=== PATIENT | female | born 1995 | race Hispanic/Latino ===

== ENCOUNTER 2018-03-23 21:10 | Emergency (ER) | payer OTHER ==
[2018-03-23 21:23] VITALS: BP 129/90; PULSE 94; RESP 16; TEMP 98.4; O2SAT 100
[2018-03-23] MEDS ORDERED: Naproxen 500 MG TAB PO STA (21:36)
--- NOTE | 2018-03-23 21:56 | ED PDOC ---
Upper Extremity Pain/Injury Time Seen by Provider: 03/23/18 21:25 Chief Complaint (Nursing): Upper Extremity Problem/Injury Chief Complaint (Provider): Upper Extremity Problem/Injury History Per: Patient History/Exam Limitations: no limitations Onset/Duration Of Symptoms: Hrs Current Symptoms Are (Timing): Still Present Pain Scale Rating Of: 6 Additional Complaint(s): Patient is a 23 year old female who reports to emergency department after injuring her left wrist and hand, status post fall x2 while ice skating. Patient states she landed on her outstretched hand both times to brace herself and she now has pain to the palm and wrist which radiates to her elbow. Patient has not taken any medications prior to arrival and states she is right hand dominant. She denies any other injury, including head injury or loss of consciousness. Otherwise: (-) numbness, (-) other injury PMD: [facility] LMP: can not remember because she is on control and it is usually irregular Past Medical History Reviewed: Historical Data, Nursing Documentation, Vital Signs Vital Signs: Last Vital Signs Temp 98.4 F 03/23/18 21:21 Pulse 94 H 03/23/18 21:21 Resp 16 03/23/18 21:21 BP 129/90 03/23/18 21:21 Pulse Ox 100 03/23/18 21:21 - Medical History PMH: Anxiety, GERD - Surgical History Surgical History: No Surg Hx - Family History Family History: States: Unknown Family Hx - Home Medications Home Medications: Ambulatory Orders Medication Instructions Recorded Acetaminophen [Acetaminophen 8 650 mg PO Q8 PRN #21 tablet.er 03/23/18 Hour] RX: Ibuprofen [Motrin Tab] 800 mg PO Q8 PRN #21 tab 03/23/18 RX: traMADol [Ultram] 50 mg PO Q6 PRN #12 tab 03/23/18 - Allergies Allergies/Adverse Reactions: Allergies Allergy/AdvReac Type Severity Reaction Status Date / Time No Known Allergies Allergy Verified 03/23/18 21:23 Review of Systems ROS Statement: Except As Marked, All Systems Reviewed And Found Negative Musculoskeletal: Positive for: Hand Pain (left hand and wrist pain ) Physical Exam - Reviewed Nursing Documentation Reviewed: Yes Vital Signs Reviewed: Yes - Physical Exam Comments: GENERAL APPEARANCE: Patient is awake, alert, oriented x 3, resting comfortably and in no acute distress. SKIN: Warm, dry; (-) cyanosis. NECK: Supple, FROM CHEST AND RESPIRATORY: (-) rales, (-) rhonchi, (-) wheezes; breath sounds equal bilaterally. Respirations even and nonlabored. HEART AND CARDIOVASCULAR: (-) irregularity WRIST/HAND: (+) diffuse tenderness to the left wrist, first metacarpal, scaphoid, and proximal palm with decreased ROM secondary to pain; (+) faint ecchymosis to the proximal palm and palmar, proximal first metacarpal; (+) Sensation and capillary refill intact (-) skin breakage; (-) warmth, (-) erythema (+) snuffbox tenderness of left wrist. Remainder of upper extremity is non tender and has FROM. NEURO AND PSYCH: Mental status as above. Gait: steady. Speech: clear. (-) facial asymmetry - ECG O2 Sat by Pulse Oximetry: 100 (RA) Pulse Ox Interpretation: Normal Medical Decision Making Medical Decision Making: Time: 21:35 Impression: acute hand and wrist pain status post fall, rule out fracture Plan: -- test --naproxen 500 mg PO --Left hand x-ray 3 views --left wrist x-ray 3 views 21:42 test: negative 2229 Wrist XR: (?) scaphoid fracture as read by Ethan HALL Wrist XR: (?) scaphoid fracture as read by Ethan HALL Patient requesting additional pain medication at this time. Tylenol #3 ordered, 1 tablet PO. Patient reports she is not driving home. 2305 Patient placed in thumb spica splint by medical equipment repair technicianpancho Jimenez. NV intact after placement. On re-evaluation, patient reports improvement of symptoms. On exam, patient remains AAOx3, in no acute distress. Vitals stable. Lab/Diagnostic results d/w the patient in great detail. Diagnosis of possible scaphoid fracture, acute wrist/hand pain s/p fall on ice skates d/w the patient. Based on history, exam and diagnostic results, plan will be for outpatient follow up with ortho. Patient instructed to follow-up with pmd / referral provided / the clinic in 1- 2 days without fail. Advised to take medication as prescribed. Return to the emergency room at any time for any new or worsening symptoms. Patient states she fully agrees with and understands discharge instructions. States that she agrees with the plan and disposition. Verbalized and repeated discharge instructions and plan. I have given the patient opportunity to ask any additional questions. Scribe Attestation: Documented by Dennis Brown, acting as a scribe for Shikha Fernandez Provider Scribe Attestation: All medical record entries made by the Scribe were at my direction and personally dictated by me. I have reviewed the chart and agree that the record accurately reflects my personal performance of the history, physical exam, medical decision making, and the department course for this patient. I have also personally directed, reviewed, and agree with the discharge instructions and disposition. Disposition - Clinical Impression Clinical Impression: Wrist pain, acute, Scaphoid fracture of wrist, Hand contusion, Fall from ice- skates - Patient ED Disposition Is Patient to be Admitted: No Counseled Patient/Family Regarding: Studies Performed, Diagnosis, Need For Followup, Rx Given - Disposition Referrals: Bennett Joseph III, MD [Staff Provider] - Disposition: Routine/Home Disposition Time: 23:05 Condition: STABLE Additional Instructions: The emergency medical care you received today was directed at your acute symptoms. If you were prescribed any medication, please fill it and take as directed. It may take several days for your symptoms to resolve. Return to the Emergency Department if your symptoms worsen, do not improve, or if you have any other problems. Please contact your doctor in 2 days for re-evaluation and follow up / or call one of the physicians/clinics you have been referred to that are listed on the Patient Visit Information form that is included in your discharge packet. Bring any paperwork you were given at discharge with you along with any medications you are taking to your follow up visit. Our treatment cannot replace ongoing medical care by a primary care provider (PCP) outside of the emergency department. Prescriptions: Acetaminophen [Acetaminophen 8 Hour] 650 mg PO Q8 PRN #21 tablet.er PRN Reason: Pain, Moderate (4-7) RX: Ibuprofen [Motrin Tab] 800 mg PO Q8 PRN #21 tab PRN Reason: Pain, Moderate (4-7) RX: traMADol [Ultram] 50 mg PO Q6 PRN #12 tab PRN Reason: Pain, Severe (8-10) Instructions: Contusion (DC), Wrist Fracture (DC), Common Wrist Injuries Forms: [facility] (Paraguayan) Print Language: PASHTO - POA Present On Arrival: None
[2018-03-23] MEDS ORDERED: Acetaminophen-Codeine 300/30 mg Tab PO STA (22:32)
--- NOTE | 2018-03-24 09:49 | RAD ---
PROCEDURE: Left Hand Radiographs. HISTORY: s/p fall, r/o fracture COMPARISON: None. FINDINGS: BONES: No acute fracture or destructive bony lesion identified. JOINTS: Normal. No osteoarthritic changes. SOFT TISSUES: Normal. OTHER FINDINGS: None. IMPRESSION: Normal left hand radiographs.
--- NOTE | 2018-03-24 09:52 | RAD ---
Date of service: 03/23/2018 PROCEDURE: Left Wrist Radiographs. HISTORY: s/p fall, joint pain COMPARISON: None. FINDINGS: BONES: No acute fracture or destructive bony lesion identified. JOINTS: No dislocation or subluxation. SOFT TISSUES: Normal. OTHER FINDINGS: Sign report by the referring clinician questions navicular fracture at the left wrist. I do not see a fracture. Follow-up CT or MRI can be utilized for added characterization if clinically warranted. IMPRESSION: Normal left wrist radiographs. CT or MRI is available for follow-up if there is clinical concern for potential fracture still.
== END 2018-03-23 23:18 | disposition home or self-care (01) ==
LOC: H.ER 21:10 → EDSEX 21:10 → H.ER 23:18
DX: S92.252A Displaced fracture of navicular [scaphoid] of left foot, initial encounter for closed fracture (principal); W00.0XXA Fall on same level due to ice and snow, initial encounter; Y93.21 Activity, ice skating; S60.222A Contusion of left hand, initial encounter